=== PATIENT | male | born 1950 | race African-American/Black ===

== ENCOUNTER → 2022-09-14 | Outpatient (CLI) | payer MEDICARE, OTHER ==
[2022-09-14 10:45] LABS: African American GFR (CKD) >90 (>60 ml/min/1.73 sqM); Blood Urea Nitrogen 9 mg/dL (9-20); Non-African American GFR(CKD) >90 (>60 ml/min/1.73 sqM)
--- NOTE | 2022-09-14 12:36 | CT ---
EXAMINATION TYPE: CT abdomen pelvis w con CT DLP: 891.4 mGycm, Automated exposure control for dose reduction was used. DATE OF EXAM: 09/14/2022 12:05 PM COMPARISON: None CLINICAL INDICATION:Male, 71 years old with history of C61 MALIGNANT NEOPLASM OF PROSTATE; prostate c a TECHNIQUE: Axial CT of the abdomen and pelvis. Sagittal and coronal reformats were created on a [employer] workstation. Contrast used:100 mL of Isovue 300 with IV Contrast, Oral contrast used: with Oral Contrast FINDINGS: LOWER CHEST: Unremarkable ABDOMEN LIVER: Unremarkable GALLBLADDER AND BILE DUCTS: Unremarkable. PANCREAS: Unremarkable. SPLEEN: Unremarkable. ADRENAL GLANDS: Unremarkable. KIDNEYS AND URETERS: Right renal foci measuring up to 4 mm. No left renal calculi visualized. Bilater al renal cysts. PELVIS BLADDER: Unremarkable REPRODUCTIVE: Prostate is enlarged in size measuring 5.0 cm in transverse dimension. Median lobe hype rtrophy changes is present in the prostate gland. ABDOMEN & PELVIS STOMACH AND BOWEL: No evidence of bowel obstruction. PERITONEUM/RETROPERITONEUM: No evidence of pneumoperitoneum or free fluid. VASCULATURE: No evidence of aortic aneurysm. Atherosclerosis of the arterial vasculature. MUSCULOSKELETAL: No acute osseous abnormalities, multilevel disc degeneration changes degeneration of the sacroiliac joints. The visualized osseous structures do not demonstrate suspicious sclerotic les ion. LYMPH NODES: No gross evidence for lymphadenopathy. SOFT TISSUE/ABDOMINAL WALL: Unremarkable IMPRESSION: 1. CT exam cannot rule out prostate cancer. Consider further evaluation with MRI prostate. There is prostatomegaly correlation with serum PSA recommended. No evidence for lymphadenopathy. 2. No acute abdominal process. 3. Right nonobstructing renal calculi.
--- NOTE | 2022-09-15 16:00 | NM ---
EXAMINATION TYPE: NM bone scan whole body DATE OF EXAM: 09/14/2022 2:07 PM CLINICAL INDICATION:Male, 71 years old with history of C61 MALIGNANT NEOPLASM OF PROSTATE; COMPARISON: CT abdomen pelvis 09/14/2022 TECHNIQUE: Intravenous administration 22.9 mCi Tc 99m MDP followed by multiple scintigraphic images o f the appendicular and axial skeleton. Images acquired 3.25 hours post injection. Small [id number] imaging of the thorax and abdomen pelvis were also performed. Additional imaging of the knee was per formed. FINDINGS: No abnormal uptake is identified within the appendicular or axial skeleton to suggest metastatic dise ase. There is increased uptake within the bilateral shoulder, sternoclavicular, and sacroiliac joints con sistent with degenerative changes. No other photopenic areas or areas of increased activity are ident ified. Focal radiotracer uptake within the lateral aspect of the left knee femoral condyle and tibial plateau. Physiologic radiotracer activity is demonstrated in the kidneys and bladder. IMPRESSION: 1. Nothing to suggest osteoblastic metastatic disease. 2. Suspected degeneration changes of the bilateral shoulders, and sternoclavicular joints and of the spine. 3. Suspected degeneration changes of the left knee likely endstage osteoarthrosis consider follow-up dedicated radiographs of the left knee.
== END | disposition home or self-care (01) ==
LOC: RADNMMAIN 09:17
PROVIDERS: ATTEND Urology
DX: C61 Malignant neoplasm of prostate (principal); N20.0 Calculus of kidney
CPT/HCPCS: 82565; 84520; 74177; 36415; 78306; A9503; Q9967

== ENCOUNTER → 2023-01-29 | Outpatient (CLI) | payer MEDICARE | END | disposition home or self-care (01) | LOC: LABWHC1 11:33 | PROVIDERS: ATTEND Radiology Radiation Oncology | DX: C61 Malignant neoplasm of prostate (principal) | CPT/HCPCS: 36415; 84153 ==

== ENCOUNTER → 2023-04-18 | Outpatient (CLI) | payer MEDICARE ==
--- NOTE | 2023-04-19 09:12 | US ---
EXAMINATION TYPE: US arterial LE single level DATE OF EXAM: 04/18/2023 2:22 PM CLINICAL INDICATION: Male, 72 years old with history of I73.9 PERIPHERAL VASCULAR DISEASE, UNSPECIFIE D; Bilateral thickened toe nails. At home care showed an abnormality with a test per patient. No pa in. History of: Smoker: Current Smoker Hypertension: Takes medication Diabetic: No Hyperlipidemia: No TIA/CVA: No Previous Vascular Surgery: No CAD: Yes AK: Yes Vascular Ulcers: No Claudication: No Gangrene: No Doppler Waveforms: Right: Multiphasic Left: Biphasic Right Brachial Pressure: 110 Left Brachial Pressure: 117 Ankle-Brachial Indices: Right: 1.0 Left: 1.1 IMPRESSION: Bilateral ankle-brachial indices within normal limits.
== END | disposition home or self-care (01) ==
LOC: RADUSWWP 13:49
PROVIDERS: ATTEND Family Medicine
DX: I73.9 Peripheral vascular disease, unspecified (principal)
CPT/HCPCS: 93922